=== PATIENT | female | born 1950 | race Caucasian/White ===

== ENCOUNTER 2019-03-07 14:12 | Emergency (ER) | payer OTHER ==
[~2019-03-07] VITALS: Ht 170.2 cm; Wt 121.6 kg
[2019-03-07 14:56] VITALS: BP 134/72
== END 2019-03-07 16:30 | disposition left against medical advice (07) ==
LOC: ED 14:12
DX: Z53.21 Procedure and treatment not carried out due to patient leaving prior to being seen by health care provider (principal)